=== PATIENT | female | born 1955 | race Caucasian/White ===

== ENCOUNTER 2023-03-10 08:03 | Emergency (ER) | payer OTHER, SELFPAY ==
[2023-03-10] VITALS (13 sets, daily range): BP systolic 140–170; BP diastolic 78–80; PULSE 49–63; RESP 7–20; TEMP 36.4; O2SAT 93–99; BMI 38.8
--- NOTE | 2023-03-10 08:36 | ECG_ITS ---
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
--- NOTE | 2023-03-10 08:38 | ED_ITS ---
HPI - General Adult General Chief complaint: Chest Pain Stated complaint: HIGH BLOOD PRESSURE Time Seen by Provider: 03/10/23 08:36 Source: patient Mode of arrival: walk-in History of Present Illness HPI narrative: Patient is a 67-year-old female who is presenting to the Emergency Room with chief complaint of hypertension, chest pain. Patient stated she had a cortisone injection in her lower back a few days ago. Patient is wondering if the cortisone injection would be causing her to have elevated blood pressure. Patient states she has a funny feeling in her chest, but she believes it is stress and anxiety. Patient blood pressure cuff at home is reading blood pressures above 140/90 yesterday, and they're higher this morning. Patient feels anxious about her elevated blood pressures, so she came into the Emergency Room. Evaluation. She has no headache. sHe currently has no significant chest heaviness. Patient has no shortness of breath, nausea or vomiting. When patient took her blood pressure recording several times a day, patient blood pressure elevated, she became stressed and anxious about this, and then she took her blood pressure 4 times in the readings were higher. Patient came in for evaluation for elevated blood pressure. She is currently asymptomatic. . All systems are negative except as noted/marked. All systems reviewed and otherwise negative. . Nurses note and vital signs reviewed and patient is not hypoxic. General: The patient appears well and in no apparent distress. Patient is resting comfortably on cart. Patient is not toxic, lethargic, or listless Skin: Warm, dry, no pallor noted. There is no rash noted. No petechiae, purpura. Head: Normocephalic, atraumatic Eye: Normal conjunctiva, no drainage, EOMI. PERRL Ears, Nose, Mouth, and Throat: oral mucosa is moist. Nares patent. Mouth without vesicles. Cardiovascular: Regular Rate and Rhythm, no murmur, gallop, rub Respiratory: Patient is in no distress, no accessory muscle use, lungs are clear to auscultation, no wheezing, rales or rhonchi Back: non-tender, no CVA tenderness bilaterally to percussion. No CT LS midline pain GI: soft, no tenderness to palpation, no masses appreciated. No rebound, guarding, or rigidity noted. No flank pain bilateral, No distention Musculoskeletal: Patient has full range of motion of all of the extremities, no motor, sensory, or focal neurological deficits Neurological: A&O x3, normal speech Psychiatric: Cooperative Related Data Home Medications Medication Instructions Recorded Confirmed amlodipine 5 mg tablet mg 03/10/23 atorvastatin 20 mg tablet 20 mg PO .every other day 03/10/23 03/10/23 buspirone 5 mg tablet 5 mg PO QDAY 03/10/23 03/10/23 clonidine HCl 0.1 mg tablet 0.1 mg PO Q12H 03/10/23 03/10/23 esomeprazole magnesium 20 mg 20 mg PO DAILY 03/10/23 03/10/23 capsule,delayed release (Nexium) meloxicam 15 mg tablet 15 mg PO QDAY 03/10/23 03/10/23 olmesartan 5 mg tablet 20 mg PO BID 03/10/23 03/10/23 Allergies Allergy/AdvReac Type Severity Reaction Status Date / Time latex AdvReac Intermediate Verified 03/10/23 08:07 Exam Constitutional Vital Signs, click to edit/add: Last Vital Signs Temp 97.5 F L 03/10/23 08:08 Pulse 49 L 03/10/23 09:50 Resp 7 L 03/10/23 09:50 BP 170/80 H 03/10/23 08:08 Pulse Ox 96 03/10/23 09:50 O2 Del Method Room Air 03/10/23 08:08 Course Vital Signs Vital signs: Vital Signs Temperature 97.5 F L 03/10/23 08:08 Pulse Rate 62 03/10/23 08:08 Respiratory Rate 18 03/10/23 08:08 Blood Pressure 170/80 H 03/10/23 08:08 Pulse Oximetry 98 03/10/23 08:08 Oxygen Delivery Method Room Air 03/10/23 08:08 Temperature 97.5 F L 03/10/23 08:08 Pulse Rate 49 L 03/10/23 09:50 Respiratory Rate 7 L 03/10/23 09:50 Blood Pressure 170/80 H 03/10/23 08:08 Pulse Oximetry 96 03/10/23 09:50 Oxygen Delivery Method Room Air 03/10/23 08:08 Medical Decision Making MDM Narrative Medical decision making narrative: Patient's EKG, chest x-ray, lab work showed no acute findings. Patient was given aspirin prophylactically. Patient will follow-up with PCP, patient will start treating a blood pressure log. Patient was educatedd on asymptomatic versus symptomatic hypertension in why to return back to the Emergency Room or following up with her PCP. Patient was told that she can always come to the Emergency Room if she is concerned. Patient has no other acute questions at this time. Patient is given a Kenalog shot a few days ago, which might be related to slightly elevated blood pressure, patient's questions were Answered at bedside. Lab Data Lab results reviewed: Yes I reviewed the patient's lab results Labs: Lab Results 03/10/23 Range/Units 08:52 WBC 4.4 (4.0-11.0) 10^3/uL RBC 4.21 (4.20-5.40) 10^6/uL Hgb 14.0 (12.0-16.0) g/dL Hct 41.6 (36.0-48.0) % MCV 98.8 (81.0-99.0) fL MCH 33.3 (26.7-34.0) pg MCHC 33.7 (29.9-35.2) g/dL RDW 11.3 (11.0-15.0) % Plt Count 165 (150-450) 10^3/uL MPV 10.1 (9.5-13.5) fL Neut % (Auto) 52.0 (43.0-75.0) % Lymph % (Auto) 36.2 (20.5-60.0) % [place] % (Auto) 7.7 (1.7-12.0) % Eos % (Auto) 2.5 (0.9-7.0) % Baso % (Auto) 1.1 (0.2-2.0) % Neut # (Auto) 2.3 (1.4-6.5) 10^3/uL Lymph # (Auto) 1.6 (1.2-3.8) 10^3/uL [place] # (Auto) 0.3 (0.3-0.8) 10^3/uL Eos # (Auto) 0.1 (0.0-0.7) 10^3/uL Baso # (Auto) 0.1 (0.0-0.1) 10^3/uL Abs Immat Gran (auto) 0.02 (0.00-0.03) 10^3/uL Imm/Tot Granulo (auto) 0.5 (0.0-0.5) % Sodium 140 (136-145) mmol/L Potassium 4.3 (3.5-5.1) mmol/L Chloride 103 (98-107) mmol/L Carbon Dioxide 29.1 (21.0-32.0) mmol/L Anion Gap 12.2 BUN 15.0 (7.0-18.0) mg/dL Creatinine 0.99 (0.55-1.02) mg/dL Est GFR ( Amer) >60 (>=60) Est GFR (Non-Af Amer) 56 L (>=60) BUN/Creatinine Ratio 15.2 Glucose 101 (74-106) mg/dL Calcium 9.2 (8.5-10.1) mg/dL Total Bilirubin 0.5 (0.2-1.0) mg/dL AST 17 (15-37) U/L ALT 27 (14-59) U/L Alkaline Phosphatase 80 (46-116) U/L Troponin I High Sens <4.0 L (4.0-51.3) pg/mL Total Protein 6.5 (6.4-8.2) g/dL Albumin 3.7 (3.4-5.0) g/dL Globulin 2.8 g/dL Albumin/Globulin Ratio 1.3 Lipase 163.0 (73.0-393.0) U/L ECG Data Attestation: I personally reviewed and interpreted this ECG as follows: (EKG interpretation. Normal sinus rhythm at 55 beats minute. Normal axis deviation. No Acute ST elevation, no acute ectopy. Nonspecific ST changes. QTC of 399.) Discharge Plan Discharge Chief Complaint: Chest Pain Clinical Impression: Chest pain, Hypertension, Situational anxiety Patient Disposition: Home, Self-Care Condition: Fair Prescriptions / Home Meds: No Action amlodipine 5 mg tablet atorvastatin 20 mg tablet 20 mg PO .every other day buspirone 5 mg tablet 5 mg PO QDAY Rx Instructions: pt takes half a pill at night per patient clonidine HCl 0.1 mg tablet 0.1 mg PO Q12H meloxicam 15 mg tablet 15 mg PO QDAY olmesartan 5 mg tablet 20 mg PO BID esomeprazole magnesium [Nexium] 20 mg capsule,delayed release(DR/EC) 20 mg PO DAILY Instructions: Chest Pain (ED), Hypertension (ED), Anxiety (ED) Additional Instructions: *Creating a blood pressure log. Record year blood pressure twice a day, once in the morning, once in the evening. Record the time and your blood pressure, presenting your blood pressures from 1-2 weeks to PCP. Anything above 140/90 is considered elevated blood pressure. Stand Alone Forms: Portal Instructions Referrals: Physician,Non-Staff, MD [Primary Care Provider] - 1 week
[2023-03-10 09:04] LABS: Basophils Absolute Auto 0.1 10^3/uL (0.0-0.1); Basophils Percent Auto 1.1 % (0.2-2.0); Eosinophils Absolute Auto 0.1 10^3/uL (0.0-0.7); Eosinophils Percent Auto 2.5 % (0.9-7.0); Hematocrit 41.6 % (36.0-48.0); Immature Granulocytes Abs Auto 0.02 10^3/uL (0.00-0.03); Immature Granulocytes Pct Auto 0.5 % (0.0-0.5); Lymphocytes Absolute Auto 1.6 10^3/uL (1.2-3.8); Lymphocytes Percent Auto 36.2 % (20.5-60.0); Mean Corpuscular HGB Conc 33.7 g/dL (29.9-35.2); Mean Corpuscular Hemoglobin 33.3 pg (26.7-34.0); Mean Corpuscular Volume 98.8 fL (81.0-99.0); Mean Platelet Volume 10.1 fL (9.5-13.5); Monocytes Absolute Auto 0.3 10^3/uL (0.3-0.8); Monocytes Percent Auto 7.7 % (1.7-12.0); Neutrophils Absolute Auto 2.3 10^3/uL (1.4-6.5); Platelet Count 165 10^3/uL (150-450); Red Blood Count 4.21 10^6/uL (4.20-5.40); Red Cell Distribution Width 11.3 % (11.0-15.0); White Blood Count 4.4 10^3/uL (4.0-11.0)
--- NOTE | 2023-03-10 09:08 | XR_ITS ---
The [address] [address] Patient Name: DEENA NOVOA MRN: [id number] date: 1955 Sex: F Assigned Patient Location: ER Current Patient Location: ER Accession/Order Number: [id number] Exam Date: 03/10/2023 09:00 Report Date: 03/10/2023 09:20 At the request of: HELGA HOPKINS Procedure: XR chest 2V EXAM: Sandra x-ray HISTORY: . cp . COMPARISON: None. TECHNIQUE: Frontal and lateral chest FINDINGS: Heart and vascularity are unremarkable. Lungs are free of focal infiltrates. Tortuosity of the thoracic aorta are noted. No acute bony abnormality is appreciated. EKG leads overlie the chest. XR/XR chest 2V IMPRESSION: No acute heart or lung disease identified. Electronically authenticated by: BRANDON WHITLEY Date: 03/10/2023 09:20
[2023-03-10 09:20] LABS: Alanine Aminotransferase 27 U/L (14-59); Albumin Globulin Ratio 1.3; Albumin Level 3.7 g/dL (3.4-5.0); Alkaline Phosphatase 80 U/L (46-116); Anion Gap 12.2; Aspartate Amino Transferase 17 U/L (15-37); BUN Creatinine Ratio 15.2; Bilirubin Total 0.5 mg/dL (0.2-1.0); Calcium 9.2 mg/dL (8.5-10.1); Carbon Dioxide 29.1 mmol/L (21.0-32.0); Chloride 103 mmol/L (98-107); Estimated GFR (African America >60 (>=60); Estimated GFR (Non-African Ame 56 (>=60); Globulin 2.8 g/dL; Glucose 101 mg/dL (74-106); Potassium 4.3 mmol/L (3.5-5.1); Sodium 140 mmol/L (136-145); Total Protein 6.5 g/dL (6.4-8.2); Troponin I High Sensitivity <4.0 pg/mL (4.0-51.3)
[2023-03-10] MEDS: ASPIRIN 81 MG TAB.CHEW 162 MG PO (09:32)
== END 2023-03-10 10:08 | disposition home or self-care (01) ==
PROVIDERS: Emergency Provider Emergency Medicine
DX: R07.9 Chest pain, unspecified (principal); I10 Essential (primary) hypertension; F41.8 Other specified anxiety disorders; Z79.899 Other long term (current) drug therapy
CPT/HCPCS: 36415; 71046; 80053; 83690; 84484; 85025; 93005; 99285

== ENCOUNTER 2024-05-11 09:52 | Emergency (ER) | payer OTHER, SELFPAY ==
[2024-05-11] VITALS (28 sets, daily range): BP systolic 152–210; BP diastolic 75–112; PULSE 56–73; TEMP 36.9; O2SAT 94–98; BMI 30.2
--- NOTE | 2024-05-11 10:19 | ECG_ITS ---
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
--- NOTE | 2024-05-11 10:19 | ED.GENADUL1 ---
HPI HPI - General Adult General Chief complaint: Recheck/Abnormal Lab/Rx Stated complaint: HIGH BLOOD PRESSURE Time Seen by Provider: 05/11/24 10:14 Source: patient Mode of arrival: walk-in Limitations: no limitations History of Present Illness HPI narrative: 68-year-old female presents for elevated blood pressure. She states it has been running high for the past week or 2 and she saw her doctor in the office multiple times this week. She had one of her medications increased and another medication was added, hydralazine. She is not complaining of chest pain or palpitations or headache or shortness of breath. Related Data Home Medications ?Medication ?Instructions ?Recorded ?Confirmed atorvastatin 20 mg tablet 20 mg PO DAILY 03/10/23 05/11/24 buspirone 5 mg tablet 2.5 mg PO BEDTIME 03/10/23 05/11/24 clonidine HCl 0.1 mg tablet 0.1 mg PO BID 03/10/23 05/11/24 esomeprazole magnesium 20 mg 20 mg PO DAILY 03/10/23 05/11/24 capsule,delayed release (Nexium) meloxicam 15 mg tablet 15 mg PO QDAY 03/10/23 05/11/24 olmesartan 5 mg tablet 40 mg PO DAILY 03/10/23 05/11/24 sertraline 25 mg tablet 12.5 mg PO BEDTIME 05/11/24 05/11/24 Allergies Allergy/AdvReac Type Severity Reaction Status Date / Time latex AdvReac Intermediate Verified 03/10/23 08:07 Opioid HPI Opioid Management Most Recent Opioid Data: No Data to Display Review of Systems ROS Narrative A ten point review of systems is negative except as noted above. Exam Narrative Exam Narrative: Nurses note and vital signs reviewed and patient is not hypoxic. General: The patient appears well and in no apparent distress. Patient is resting comfortably on cart. Skin: Warm, dry, no pallor noted. There is no rash noted. Head: Normocephalic, atraumatic Eye: Normal conjunctiva, no drainage Ears, Nose, Mouth, and Throat: oral mucosa is moist. Nares patent. Cardiovascular: Regular Rate and Rhythm Respiratory: Patient is in no distress, no accessory muscle use, lungs are clear to auscultation, no wheezing, rales or rhonchi Back: non-tender GI: Soft and nontender Musculoskeletal: The patient has no evidence of calf tenderness, no pitting edema, symmetrical pulses noted bilaterally Neurological: A&O, normal speech Psychiatric: Cooperative Constitutional Vital Signs, click to edit/add: Last Vital Signs Temp 98.4 F 05/11/24 09:58 Pulse 57 L 05/11/24 13:00 Resp 12 05/11/24 13:00 BP 152/88 H 05/11/24 13:23 Pulse Ox 98 05/11/24 13:00 O2 Del Method Room Air 05/11/24 09:58 Course Vital Signs Vital signs: Vital Signs Temperature 98.4 F 05/11/24 09:58 Pulse Rate 73 05/11/24 09:58 Respiratory Rate 18 05/11/24 09:58 Blood Pressure 164/92 H 05/11/24 09:58 Pulse Oximetry 98 05/11/24 09:58 Oxygen Delivery Method Room Air 05/11/24 09:58 Temperature 98.4 F 05/11/24 09:58 Pulse Rate 57 L 05/11/24 13:00 Respiratory Rate 12 05/11/24 13:00 Blood Pressure 152/88 H 05/11/24 13:23 Pulse Oximetry 98 05/11/24 13:00 Oxygen Delivery Method Room Air 05/11/24 09:58 Medical Decision Making MDM Narrative Medical decision making narrative: The patient presented with elevated blood pressure. EKG shows no acute findings and blood work is normal. She was given IV labetalol with improvement in her blood pressure and she is able to be discharged home. Follow-up in her doctor's office for blood pressure recheck. Treatment diagnosis and follow-up were discussed with the patient. Differential Diagnosis Differential Diagnosis: Hypertension, noncompliance, renal failure Lab Data Lab results reviewed: Yes I reviewed the patient's lab results Labs: Lab Results 05/11/24 Range/Units 11:22 WBC 4.5 (4.0-11.0) 10^3/uL RBC 4.32 (4.20-5.40) 10^6/uL Hgb 14.4 (12.0-16.0) g/dL Hct 41.6 (36.0-48.0) % MCV 96.3 (81.0-99.0) fL MCH 33.3 (26.7-34.0) pg MCHC 34.6 (29.9-35.2) g/dL RDW 11.9 (11.0-15.0) % Plt Count 154 (150-450) 10^3/uL MPV 10.2 (9.5-13.5) fL Neut % (Auto) 38.3 L (43.0-75.0) % Lymph % (Auto) 47.3 (20.5-60.0) % [place] % (Auto) 10.2 (1.7-12.0) % Eos % (Auto) 2.7 (0.9-7.0) % Baso % (Auto) 1.1 (0.2-2.0) % Neut # (Auto) 1.7 (1.4-6.5) 10^3/uL Lymph # (Auto) 2.1 (1.2-3.8) 10^3/uL [place] # (Auto) 0.5 (0.3-0.8) 10^3/uL Eos # (Auto) 0.1 (0.0-0.7) 10^3/uL Baso # (Auto) 0.1 (0.0-0.1) 10^3/uL Abs Immat Gran (auto) 0.02 (0.00-0.03) 10^3/uL Imm/Tot Granulo (auto) 0.4 (0.0-0.5) % Sodium 140 (136-145) mmol/L Potassium 4.1 (3.5-5.1) mmol/L Chloride 105 (98-107) mmol/L Carbon Dioxide 26.8 (21.0-32.0) mmol/L Anion Gap 12.3 BUN 19.0 H (7.0-18.0) mg/dL Creatinine 1.05 H (0.55-1.02) mg/dL Est GFR ( Amer) >60 (>=60 mL/min/1.73m^2) Est GFR (Non-Af Amer) 52 L (>=60 mL/min/1.73m^2) BUN/Creatinine Ratio 18.1 Glucose 89 (74-106) mg/dL Calcium 9.2 (8.5-10.1) mg/dL ECG Data Attestation: I personally reviewed and interpreted this ECG as follows: (EKG on my interpretation shows sinus rhythm with a rate of 71.) Critical Care Time Critical Care Time Critical Care Time: Yes Total Critical Care Time: 35 Attestation: Due to the high probability of sudden and clinically significant deterioration in the patient's condition he/she required the highest level of my preparedness to intervene urgently I provided critical care time including documentation time, medication orders and management, reevaluation, vital sign assessment, ordering and reviewing of lab tests, ordering and reviewing of x-ray studies, and admission orders. Aggregate critical care time is 35 minutes including only time during which I was engaged in work directly related to his/her care and did not include time spent treating other patients simultaneously. Discharge Plan Discharge Chief Complaint: Recheck/Abnormal Lab/Rx Clinical Impression: Hypertension Patient Disposition: Home, Self-Care Time of Disposition Decision: 13:23 Condition: Good Mode of Transportation: Private Vehicle Prescriptions / Home Meds: No Action atorvastatin 20 mg tablet 20 mg PO DAILY buspirone 5 mg tablet 2.5 mg PO BEDTIME Rx Instructions: pt takes half a pill at night per patient clonidine HCl 0.1 mg tablet 0.1 mg PO BID meloxicam 15 mg tablet 15 mg PO QDAY olmesartan 5 mg tablet 40 mg PO DAILY esomeprazole magnesium [Nexium] 20 mg capsule,delayed release(DR/EC) 20 mg PO DAILY sertraline 25 mg tablet 12.5 mg PO BEDTIME Print Language: Faroese Instructions: Hypertension (ED) Additional Instructions: Blood pressure recheck in your doctor's office at your appointment on Monday. Referrals: Physician,Non-Staff, MD [Primary Care Provider] - 1 week
[2024-05-11 11:31] LABS: Basophils Absolute Auto 0.1 10^3/uL (0.0-0.1); Basophils Percent Auto 1.1 % (0.2-2.0); Eosinophils Absolute Auto 0.1 10^3/uL (0.0-0.7); Eosinophils Percent Auto 2.7 % (0.9-7.0); Hematocrit 41.6 % (36.0-48.0); Hemoglobin 14.4 g/dL (12.0-16.0); Immature Granulocytes Abs Auto 0.02 10^3/uL (0.00-0.03); Immature Granulocytes Pct Auto 0.4 % (0.0-0.5); Lymphocytes Absolute Auto 2.1 10^3/uL (1.2-3.8); Lymphocytes Percent Auto 47.3 % (20.5-60.0); Mean Corpuscular HGB Conc 34.6 g/dL (29.9-35.2); Mean Corpuscular Hemoglobin 33.3 pg (26.7-34.0); Mean Corpuscular Volume 96.3 fL (81.0-99.0); Mean Platelet Volume 10.2 fL (9.5-13.5); Monocytes Absolute Auto 0.5 10^3/uL (0.3-0.8); Monocytes Percent Auto 10.2 % (1.7-12.0); Neutrophils Absolute Auto 1.7 10^3/uL (1.4-6.5); Neutrophils Percent Auto 38.3 % (43.0-75.0); Platelet Count 154 10^3/uL (150-450); Red Blood Count 4.32 10^6/uL (4.20-5.40); Red Cell Distribution Width 11.9 % (11.0-15.0); White Blood Count 4.5 10^3/uL (4.0-11.0)
[2024-05-11 11:43] LABS: Anion Gap 12.3; BUN Creatinine Ratio 18.1; Calcium 9.2 mg/dL (8.5-10.1); Carbon Dioxide 26.8 mmol/L (21.0-32.0); Chloride 105 mmol/L (98-107); Estimated GFR (African America >60 (>=60 mL/min/1.73m^2); Estimated GFR (Non-African Ame 52 (>=60 mL/min/1.73m^2); Glucose 89 mg/dL (74-106); Potassium 4.1 mmol/L (3.5-5.1); Sodium 140 mmol/L (136-145)
[2024-05-11] MEDS: LABETALOL HCL 100 MG/20 ML MDV IVP (12:28)
== END 2024-05-11 13:36 | disposition home or self-care (01) ==
PROVIDERS: Emergency Provider Emergency Medicine
DX: I10 Essential (primary) hypertension (principal)
CPT/HCPCS: 36415; 80048; 85025; 93005; 96374; 99284; J1290